=== PATIENT | male | born 1980 | race Caucasian/White ===

== ENCOUNTER 2025-05-19 04:16 | Emergency (ER) | payer OTHER, SELFPAY ==
[2025-05-19] VITALS (31 sets, daily range): BP systolic 116–159; BP diastolic 70–102; PULSE 72–94; TEMP 36.6; O2SAT 91–98; BMI 29.5
--- NOTE | 2025-05-19 04:23 | ECG_ITS ---
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 Measurements Intervals [place] Rate: 88 P: 15 MN: 166 QRS: 28 QRSD: 88 T: 47 QT: 332 QTc: 377 Interpretive Statements 1100 Sinus rhythm 9110 normal ECG No previous ECG available for comparison Electronically Signed On 05-19-2025 14:15:44 EST by OSCAR MAZA M.D.
--- NOTE | 2025-05-19 04:36 | ED_ITS ---
HPI - Chest Pain General Chief Complaint: Chest Pain Stated Complaint: CHEST PAINS Time Seen by Provider: 05/19/25 04:33 Source: patient Mode of arrival: walk-in Limitations: no limitations History of Present Illness HPI narrative: chest pain radiating into left neck. Started about 1AM. Pain has now decreased to 3/10. similar chest pain on and off since 04/03. States episode of pain yesterday AM that eventually resolved. Returned again this AM. Daily cigarette smoker. No known history of heart disease Related Data Home Medications ?Medication ?Instructions ?Recorded ?Confirmed No Known Home Medications 05/19/2505/10 Allergies Allergy/AdvReac Type Severity Reaction Status Date / Time No Known Drug Allergies Allergy Verified 05/19/25 04:20 Review of Systems ROS Status of ROS 10 or more systems reviewed and unremark able except as noted in history and below PFSH PFSH Social History Little interest or pleasure in doing things: not at all Feeling down, depressed, or hopeless: not at all Exam Constitutional Vital Signs, click to edit/add: Last Vital Signs Temp 97.8 F 05/19/25 04:21 Pulse 91 H 05/19/25 05:50 Resp 18 05/19/25 05:50 BP 134/99 H 05/19/25 05:45 Pulse Ox 95 05/19/25 05:50 O2 Del Method Room Air 05/19/25 04:21 Common normals: no apparent distress, average body habitus, oriented x3, no limitations, healthy appearing, alert and well nourished [facility] Common normals: normocephalic and head/scalp atraumatic Eye Common normals: EOMs intact bilaterally and conjunctivae normal Respiratory Common normals: normal respiratory effort, no retractions, no use of accessory muscles and clear to auscultation bilaterally Cardio Common normals: regular rate, regular rhythm, S1 normal heart sound and S2 normal heart sound GI Common normals: Normal to inspection, nondistended, normoactive bowel sounds present, soft to palpation and non-tender Extremity Common normals: normal to inspection Neuro Common normals: oriented x3, CN's II-XII intact bilaterally, moves all extremities and no focal motor deficits Psych Appearance: grossly normal Course Vital Signs Vital signs: Vital Signs Temperature 97.8 F 05/19/25 04:21 Pulse Rate 94 H 05/19/25 04:21 Respiratory Rate 19 05/19/25 04:21 Blood Pressure 159/101 H 05/19/25 04:21 Pulse Oximetry 97 05/19/25 04:21 Oxygen Delivery Method Room Air 05/19/25 04:21 Temperature 97.8 F 05/19/25 04:21 Pulse Rate 91 H 05/19/25 05:50 Respiratory Rate 18 05/19/25 05:50 Blood Pressure 134/99 H 05/19/25 05:45 Pulse Oximetry 95 05/19/25 05:50 Oxygen Delivery Method Room Air 05/19/25 04:21 MDM - Chest Pain MDM Narrative Medical decision making narrative: daily smoker presents with complaint of chest pain on and off since 04/03. Had pain yesterday AM that resolved. Returned again this AM radiating into his neck. No dyspnea or nausea. Normal EKG labs with elevated troponin. Patient re examined and pain was down to 3/5 but has since increased to 5/10. Cxray no infiltrate. No definite widening of the mediastinum. but ? tortuous aorta. will check CTA chest discussed with the hospitalist who has accepted the patient in transfer. He was concerned about possible myocardtis . Patient does have a normal EKG patient started on nitro drip and is now pain free. Results of CTA pending RBS elevated at 302. No known history of diabetes. will need to be followed. Lab Data Labs: Lab Results 05/19/25 Range/Units 04:30 WBC 13.2 H (4.0-11.0) 10^3/uL RBC 5.79 (4.70-6.10) 10^6/uL Hgb 18.2 H (14.0-18.0) g/dL Hct 51.7 (42.0-54.0) % MCV 89.3 (80.0-94.0) fL MCH 31.4 (25.9-34.0) pg MCHC 35.2 (29.9-35.2) g/dL RDW 12.0 (11.0-15.0) % Plt Count 215 (150-450) 10^3/uL MPV 10.7 (9.5-13.5) fL Neut % (Auto) 65.2 (43.0-75.0) % Lymph % (Auto) 21.9 (20.5-60.0) % Williamson % (Auto) 7.9 (1.7-12.0) % Eos % (Auto) 4.2 (0.9-7.0) % Baso % (Auto) 0.5 (0.2-2.0) % Neut # (Auto) 8.6 H (1.4-6.5) 10^3/uL Lymph # (Auto) 2.9 (1.2-3.8) 10^3/uL Williamson # (Auto) 1.1 H (0.3-0.8) 10^3/uL Eos # (Auto) 0.6 (0.0-0.7) 10^3/uL Baso # (Auto) 0.1 (0.0-0.1) 10^3/uL Abs Immat Gran (auto) 0.04 H (0.00-0.03) 10^3/uL Imm/Tot Granulo (auto) 0.3 (0.0-0.5) % APTT 26.5 (22.3-36.2) sec D-Dimer <0.19 (<=0.59) mg/L FEU Sodium 137 (136-145) mmol/L Potassium 3.8 (3.5-5.1) mmol/L Chloride 101 (98-107) mmol/L Carbon Dioxide 28.4 (21.0-32.0) mmol/L Anion Gap 11.4 BUN 16.0 (7.0-18.0) mg/dL Creatinine 1.06 (0.70-1.30) mg/dL Est GFR ( Amer) >60 (>=60 mL/min/1.73m^2) Est GFR (Non-Af Amer) >60 (>=60 mL/min/1.73m^2) BUN/Creatinine Ratio 15.1 Glucose 302 H (74-106) mg/dL Calcium 9.2 (8.5-10.1) mg/dL Total Bilirubin 0.8 (0.2-1.0) mg/dL AST 29 (15-37) U/L ALT 23 (16-63) U/L Alkaline Phosphatase 129 H (46-116) U/L Troponin I High Sens 6833.4 H* (4.0-76.1) pg/mL Total Protein 7.4 (6.4-8.2) g/dL Albumin 4.3 (3.4-5.0) g/dL Globulin 3.1 g/dL Albumin/Globulin Ratio 1.4 Discharge Plan Discharge Chief Complaint: Chest Pain Clinical Impression: Chest pain, Non-ST elevation MS (NSTEMI), Acute hyperglycemia Prescriptions / Home Meds: No Action No Known Home Medications Print Language: [place] Referrals: KELL NEELY [Primary Care Provider, Internal Medicine] - 1 week
--- NOTE | 2025-05-19 04:37 | XR_ITS ---
[place] [id number] Patient Name: TOÑITO MENDOZA MRN: [id number] date: 1980 Sex: M Assigned Patient Location: ER Current Patient Location: Accession/Order Number: [id number] Exam Date: 05/19/2025 04:48 Report Date: 05/19/2025 08:38 At the request of: ELEN MCKEON MD Procedure: XR chest 1V XR chest 1V 05/19/2025 4:55 AM SIGNS AND SYMPTOMS: ^chest pain PROTOCOL: Frontal radiograph of the chest COMPARISON: None FINDINGS: The trachea is midline. The heart and mediastinal structures are within normal limits. The lung parenchyma is clear. The bony thorax is intact. XR/XR chest 1V IMPRESSION: No acute cardiopulmonary pathology. Impression dictated by: Jarret Dunn M.D. 05/19/2025 8:38 AM Dictation Location: [place] [address] Electronically authenticated by: [id number] Y Date: 05/19/2025 08:38
[2025-05-19 04:41] LABS: Hematocrit 51.7 % (42.0-54.0); Hemoglobin 18.2 g/dL (14.0-18.0); Immature Granulocytes Abs Auto 0.04 10^3/uL (0.00-0.03); Immature Granulocytes Pct Auto 0.3 % (0.0-0.5); Lymphocytes Absolute Auto 2.9 10^3/uL (1.2-3.8); Mean Corpuscular HGB Conc 35.2 g/dL (29.9-35.2); Mean Corpuscular Hemoglobin 31.4 pg (25.9-34.0); Mean Corpuscular Volume 89.3 fL (80.0-94.0); Platelet Count 215 10^3/uL (150-450); Red Blood Count 5.79 10^6/uL (4.70-6.10); White Blood Count 13.2 10^3/uL (4.0-11.0)
[2025-05-19 04:56] LABS: Alanine Aminotransferase 23 U/L (16-63); Albumin Globulin Ratio 1.4; Albumin Level 4.3 g/dL (3.4-5.0); Alkaline Phosphatase 129 U/L (46-116); Anion Gap 11.4; Aspartate Amino Transferase 29 U/L (15-37); Blood Urea Nitrogen 16.0 mg/dL (7.0-18.0); Calcium 9.2 mg/dL (8.5-10.1); Carbon Dioxide 28.4 mmol/L (21.0-32.0); Chloride 101 mmol/L (98-107); Estimated GFR (African America >60 (>=60 mL/min/1.73m^2); Estimated GFR (Non-African Ame >60 (>=60 mL/min/1.73m^2); Globulin 3.1 g/dL; Glucose 302 mg/dL (74-106); Potassium 3.8 mmol/L (3.5-5.1); Sodium 137 mmol/L (136-145); Total Protein 7.4 g/dL (6.4-8.2)
--- NOTE | 2025-05-19 05:02 | PC.NURSE ---
Lab called with a critical trop=6,833.4 DR Duenas informed of this
[2025-05-19] MEDS: NITROGLYCERIN IN 5 % DEXTROSE 50 MG/250 ML INFUS..BTL IV (05:20)
[2025-05-19] MEDS: ASPIRIN 81 MG TAB.CHEW 324 MG PO (05:46)
[2025-05-19 06:04] LABS: Partial Thromboplastin Time 26.5 sec (22.3-36.2)
--- NOTE | 2025-05-19 06:06 | PC.NURSE ---
this patient and his informed of the transfer to [facility] to [address] [place] [address] room 4020 and [facility] will be here around 07:20 to transport you. this patient's will taken with her all of the patient's belonging with her
== END 2025-05-19 07:52 | disposition short-term general hospital (02) ==
PROVIDERS: Emergency Provider Internal Medicine; PCP Internal Medicine
DX: I21.4 Non-ST elevation (NSTEMI) myocardial infarction (principal); R07.9 Chest pain, unspecified; R73.9 Hyperglycemia, unspecified; F17.210 Nicotine dependence, cigarettes, uncomplicated
CPT/HCPCS: 36415; 71045; 71275; 80053; 84484; 85025; 85378; 85730; 93005; 96374; 99285; J2305; Q9967